=== PATIENT | female | born 2000 | race Caucasian/White ===

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

== ENCOUNTER 2019-09-14 20:45 | Emergency (ER) | payer MEDICAID ==
[2019-09-14 20:55] VITALS: BP 120/86; PULSE 85
--- NOTE | 2019-09-14 21:14 | EDM.PDOC ---
ED HPI GENERAL MEDICAL PROBLEM - General Chief Complaint: Upper Extremity Injury/Pain Stated Complaint: LEFT ARM AND KNEE INJURY Time Seen by Provider: 09/14/19 20:47 Source of Information: Reports: Patient History Limitations: Reports: No Limitations - History of Present Illness INITIAL COMMENTS - FREE TEXT/NARRATIVE: Patient is a 18-year-old female who presents with complaints of pain to her bilateral knees and left wrist after falling while carrying her turtle. She states that she fell onto her knees and hit her wrist during the fall, however she is unsure exactly how that occurred. She does have a mild abrasion to the lateral aspect of her wrist which she states was from the turtle shell scraping on her arm. She is unsure when her last tetanus vaccination was; however, states that she did receive her routine childhood vaccinations. She is had no previous injuries to the wrist. She has been able to walk without difficulty since the time of the injury. Left Wrist Pain Score (Numeric/FACES): 4 - Related Data Allergies Allergy/AdvReac Type Severity Reaction Status Date / Time No Known Allergies Allergy Verified 09/14/19 20:54 Home Meds: Home Meds . [No Known Home Meds] 06/12/14 [History] Past Medical History - Past Health History Medical/Surgical History: Denies Medical/Surgical History HEENT History: Reports: Other (See Below) Other HEENT History: tinnitus Other Cardiovascular History: Pt states has pain under sternum about once a month, it is sometimes accompained by shortness of breath Respiratory History: Reports: Other (See Below) Other Respiratory History: pleurisy - Past Surgical History HEENT Surgical History: Reports: Other (See Below) Other HEENT Surgeries/Procedures: wisdom teeth removed Social & Family History - Family History Family Medical History: Noncontributory - Tobacco Use Smoking Status *Q: Never Smoker - Caffeine Use Caffeine Use: Reports: Coffee, Tea - Recreational Drug Use Recreational Drug Use: No Review of Systems - Review of Systems Review Of Systems: Comprehensive ROS is negative, except as noted in HPI. ED EXAM, GENERAL - Physical Exam Exam: See Below () General Appearance: Alert, WD/WN, No Apparent Distress Respiratory/Chest: No Respiratory Distress, Lungs Clear, Normal Breath Sounds, No Accessory Muscle Use, Chest Non-Tender Cardiovascular: Normal Peripheral Pulses, Regular Rate, Rhythm, No Edema, No Gallop, No JVD, No Murmur, No Rub Extremities: Normal Inspection, Normal Range of Motion, Non-Tender, No Pedal Edema, Normal Capillary Refill, Other (No swelling, redness, or ecchymosis to bilateral knees. She is able to ambulate without difficulty. Mild swelling to the lateral aspect of the distal forearm. No ecchymosis.) Neurological: Alert, Oriented, CN II-XII Intact, Normal Cognition, Normal Gait, Normal Reflexes, No Motor/Sensory Deficits Psychiatric: Normal Affect, Normal Mood Skin Exam: Warm, Dry, Intact, Normal Color, No Rash, Other (2 cm abrasion to the left lateral wrist. no active bleeding.) Course - Vital Signs Last Recorded V/S: Last Vital Signs Temp 99.0 F 09/14/19 20:54 Pulse 85 09/14/19 20:54 Resp 19 09/14/19 20:54 BP 120/86 09/14/19 20:54 Pulse Ox 99 09/14/19 20:54 - Orders/Labs/Meds Orders: Active Orders 24 hr Category Date Time Status Wrist Comp Min 3V Lt [CR] Stat Exams 09/14/19 21:02 Taken - Re-Assessments/Exams Free Text/Narrative Re-Assessment/Exam: On exam, her bilateral knees do not appear swollen and have no deformity. She has been able to walk without difficulty. I do not feel x-rays are warranted at this time. She does have some swelling to the lateral aspect of her left distal forearm. I will complete a x-ray of the left wrist. Discussed tetanus vaccination with the patient. She states she did have her routine childhood vaccinations, therefore she should have had one at age [age] years old. I did recommend that we updated today to be sure. She is not sure if she would like this done and will think about it. 09/14/19 21:25 xray of the left wrist was negative for any acute fractures. The abrasion to her left wrist was cleansed well by nursing staff. bacitracin and a bandaid was applied. Pt declined a tdap. discharge instructions as documented. Departure - Departure Time of Disposition: 21:27 Disposition: Home, Self-Care 01 Condition: Good Clinical Impression: Contusion of left wrist Qualifiers: Encounter type: initial encounter Qualified Code(s): S60.212A - Contusion of left wrist, initial encounter - Discharge Information *PRESCRIPTION DRUG MONITORING PROGRAM REVIEWED*: No *COPY OF PRESCRIPTION DRUG MONITORING REPORT IN PATIENT YOLANDA: No Instructions: Contusion Referrals: PCP,None [Primary Care Provider] - Forms: ED Department Discharge Additional Instructions: You were seen in the emergency department for pain to your knees and left wrist after falling while carrying your turtle. An xray was done of your left wrist and was negative for any fractures. The abrasion to your wrist was cleansed and covered with antibiotic ointment and a bandaid. Recommend that you keep this wound clean and dry. Wash it twice daily with normal soap and water. You may apply antibiotic oitment and a bandaid. You may intermittently apply ice to your wrist in the area of swelling. You may use over the counter tylenol or ibuprofen as needed for pain. Watch for signs of infection to the abrasion on your arm including increased redness, swelling, or purulent drainage. If these should occur, recommend that you follow-up in the clinic or return to ER as needed. Sepsis Event Note - Evaluation Sepsis Screening Result: No Definite Risk - Focused Exam Vital Signs: Vital Signs Temp Pulse Resp BP Pulse Ox 09/14/19 20:54 99.0 F 85 19 120/86 99 Date Exam was Performed: 09/14/19 Time Exam was Performed: 21:58 - My Orders Last 24 Hours: My Active Orders 09/14/19 21:02 Wrist Comp Min 3V Lt [CR] Stat - Assessment/Plan Last 24 Hours: My Active Orders 09/14/19 21:02 Wrist Comp Min 3V Lt [CR] Stat
--- NOTE | 2019-09-15 09:51 | CR ---
Left wrist: 4 views left wrist were obtained. Comparison: No prior wrist exam is available. Joint spaces are preserved. No fracture, dislocation or other bony abnormality is appreciated. Impression: 1. Nothing acute is appreciated on left wrist exam. Diagnostic code #1 This report was dictated in MDT
== END 2019-09-14 21:53 | disposition home or self-care (01) ==
LOC: JD.ED 20:45
DX: S60.212A Contusion of left wrist, initial encounter (principal); W01.10XA Fall on same level from slipping, tripping and stumbling with subsequent striking against unspecified object, initial encounter
CPT/HCPCS: 73110-26-LT; 73110-LT; 99282; 99283-25

== ENCOUNTER 2022-07-05 12:46 | Emergency (ER) | payer MEDICAID ==
[2022-07-05] MEDS ORDERED: Sodium Chloride 0.9% 10 ML Syringe FLUSH PRN (13:31)
[2022-07-05] MEDS ORDERED: Sodium Chloride 0.9% 1,000 ML IV ONE (13:31)
[2022-07-05] MEDS ORDERED: Ondansetron 4 MG/2 ML SDV IVPUSH ONE (13:31)
[2022-07-05] MEDS ORDERED: Ondansetron 4 MG/2 ML SDV ONE (13:46)
[2022-07-05] MEDS ORDERED: Sodium Chloride 0.9% 1,000 ML ONE (13:46)
[2022-07-05 16:20] VITALS: BP 102/66; PULSE 80
== END 2022-07-05 16:10 | disposition home or self-care (01) ==
LOC: JD.ED 12:46
DX: R11.2 Nausea with vomiting, unspecified (principal); E86.0 Dehydration
CPT/HCPCS: 36415; 80053; 81001; 83735; 85025; 96361; 96374; 99284; J2405; J3490; J7030